=== PATIENT | female | born 1960 | race Caucasian/White ===

== ENCOUNTER → 2023-08-13 07:06 | Outpatient (REF) | payer OTHER, SELFPAY | LOC: MRI 07:06 | PROVIDERS: ATTENDING PHYSICIAN Podiatrist Foot & Ankle Surgery; FAMILY PHYSICIAN Physician Assistant Medical | DX: M76.62 Achilles tendinitis, left leg (principal); M67.02 Short Achilles tendon (acquired), left ankle | CPT/HCPCS: 73721 ==

== ENCOUNTER → 2023-09-04 14:39 | Outpatient (REF) | payer OTHER, SELFPAY | LOC: WDC 14:39 | PROVIDERS: ATTENDING PHYSICIAN Obstetrics & Gynecology; FAMILY PHYSICIAN Physician Assistant Medical | DX: N64.4 Mastodynia (principal); Z12.31 Encounter for screening mammogram for malignant neoplasm of breast | CPT/HCPCS: 76642; 77061; 77065 ==

== ENCOUNTER → 2023-10-20 16:52 | Outpatient (REF) | payer OTHER, SELFPAY | LOC: RAD 16:52 | PROVIDERS: ATTENDING PHYSICIAN Internal Medicine Endocrinology, Diabetes & Metabolism; FAMILY PHYSICIAN Physician Assistant Medical | DX: E04.2 Nontoxic multinodular goiter (principal) | CPT/HCPCS: 76536 ==

== ENCOUNTER → 2024-01-20 11:21 | Outpatient (REF) | payer OTHER, SELFPAY | LOC: RAD 11:21 | PROVIDERS: ATTENDING PHYSICIAN Surgery | DX: E01.0 Iodine-deficiency related diffuse (endemic) goiter (principal) | CPT/HCPCS: 70491; Q9967 ==

== ENCOUNTER 2024-03-30 06:07 | Day surgery (SDC) | payer MEDICARE, OTHER, SELFPAY ==
[2024-03-15 12:48] VITALS: BMI 30.1
[2024-03-30] VITALS (11 sets, daily range): BP systolic 120–160; BP diastolic 61–76; BMI 30.1
[2024-03-30] MEDS: HEPARIN 5000 UNITS SC (07:20)
[2024-03-30] MEDS: TYLENOL 1000 MG PO (07:20)
[2024-03-30] MEDS: NEURONTIN 300 MG PO (07:20)
[2024-03-30] MEDS: NORMOSOL-R/PLASMALYTE-A 1000 IV (07:22)
--- NOTE | 2024-03-30 09:37 | OR.RPT ---
Operative Report
Operative Report
DATE OF OPERATION: March 30, 2024
PREOPERATIVE DIAGNOSIS: �Goiter - E040
POSTOPERATIVE DIAGNOSIS: Substernal multinodular goiter
SURGEON: Juan Jose Villa M.D.
OPERATION: �Resection of substernal goiter - 20228
ANESTHESIA: GET
ESTIMATED BLOOD LOSS: 10 cc
DRAINS: None
SPECIMEN: �total thyroid
FINDINGS: Substernal goiter
COMPLICATIONS:� None
PROCEDURE:
The patient was taken to the operating room and placed in the usual supine position. After adequate general endotracheal anesthesia was established, the patient�s neck was extended, prepped, and draped in the typical sterile fashion. A 6 cm
transcervical incision was made two fingerbreadths above the sternal notch. The skin incision was made with the #15 blade, which was taken through the skin into the subcutaneous tissue. The underlying platysma muscle was divided, and subplatysmal
flaps were created superiorly to the thyroid cartilage and inferiorly to the sternal notch. Strap muscles were identified and at the midline.
Attention was turned to the patient�s right thyroid lobe. The right thyroid lobe was mobilized medially. During this process, the right middle thyroid vein and inferior thyroid artery were dissected and ligated with Ligasure. There was a substernal
extension, which was delivered out of the mediastinum through the cervical incision. Next, the right superior pole was taken down by dissecting and transecting the superior pole vessels with a Ligasure. The right thyroid lobe was mobilized medially.
During this process, the right recurrent laryngeal nerve was identified and preserved throughout its entire course. The right superior parathyroid gland was identified and preserved. The right thyroid lobe with isthmus was resected off the trachea.
The right superior parathyroid gland came out with the right thyroid lobe, which was minced and autotransplanted in the right SCM muscle.
Attention was turned to the patient�s left thyroid lobe. The left thyroid lobe was mobilized medially. During this process, the left middle thyroid vein and inferior thyroid artery were dissected and ligated with Ligasure. There was also substernal
extension, which was delivered out of the mediastinum through the cervical incision. Next, the left superior pole was taken down by dissecting and transecting the superior pole vessels with a Ligasure. The left thyroid lobe was mobilized medially.
During this process, the left recurrent laryngeal nerve was identified and preserved throughout its entire course. The left inferior parathyroid gland was identified and preserved. The left thyroid lobe with isthmus was resected off the trachea and
sent to the pathology department.
After obtaining adequate hemostasis, the strap muscle was approximated with #3-0 Vicryl in a running fashion, and platysma muscles were reapproximated with #3-0 Vicryl in an interrupted fashion, and the skin was approximated with #4-0 Monocryl in a
running subcuticular fashion. Steri-strips and sterile dressings were placed. The patient tolerated the procedure well. The final instrument, needle, and sponge counts were correct.
[2024-03-30] MEDS: SUBLIMAZE 25 MCG IV ×2 (10:13→10:27)
== END 2024-03-30 13:02 | disposition home or self-care (01) ==
LOC: SDS 06:07
PROVIDERS: ATTENDING PHYSICIAN Surgery; FAMILY PHYSICIAN Physician Assistant Medical
DX: E04.2 Nontoxic multinodular goiter (principal)
CPT/HCPCS: 60271; 88307; C1776; C9250

== ENCOUNTER → 2024-05-13 14:17 | Outpatient (REF) | payer MEDICARE, OTHER, SELFPAY | LOC: HWRAD 14:17 | PROVIDERS: ATTENDING PHYSICIAN Internal Medicine Endocrinology, Diabetes & Metabolism; FAMILY PHYSICIAN Physician Assistant Medical; OTHER PHYSICIAN Obstetrics & Gynecology; REFERRING PHYSICIAN Hospitalist | DX: Z78.0 Asymptomatic menopausal state (principal) | CPT/HCPCS: 77080 ==